=== PATIENT | male | born 1975 | race Asian ===

== ENCOUNTER 2021-04-24 10:40 | Emergency (ER) | payer OTHER, SELFPAY ==
--- NOTE | ~2021-04-24 | CT_ITS ---
EXAMINATION: CT ABDOMEN AND PELVIS WITHOUT CONTRAST CLINICAL INFORMATION: Abdominal pain COMPARISON: Previous exam September 2016 TECHNIQUE: Multidetector volumetric imaging was performed from the superior aspect of the liver through the pubic symphysis. Sagittal and coronal reformatted images were obtained on the technologist's workstation. This CT examination was performed using dose optimization techniques as appropriate, variously including the following: *Automated exposure control *Adjustment of mA and/or kV according to patient size (this includes techniques or standardized protocols for targeted exams where dose is matched to indication/reason for exam; i.e. extremities or head) *Use of iterative reconstruction technique DLP: 591 mGy-cm FINDINGS: LUNG BASES: There is a 3 mm calcified left lower lobe nodule that is stable and probably represents a calcified granuloma. The lung bases are otherwise clear. LIVER, GALLBLADDER, AND BILIARY TREE: The liver is normal in size, shape, and attenuation. No focal hepatic lesion or biliary ductal dilatation is present. The gallbladder is unremarkable with no evidence of radiopaque gallstones, gallbladder wall thickening, or obvious pericholecystic inflammatory changes. PANCREAS: Unremarkable. SPLEEN: Unremarkable. ADRENAL GLANDS: Unremarkable. KIDNEYS AND URETERS: There are small bilateral renal stones. There is moderate right hydronephrosis and ureteral dilatation from a 4 mm right distal ureteral stone. No left hydronephrosis is seen. BLADDER: Unremarkable. GASTROINTESTINAL TRACT: The small and large bowel are unremarkable. The appendix is unremarkable. There may be a small esophageal hernia. ABDOMINAL WALL: No significant hernia is appreciated. LYMPH NODES: Normal. VASCULAR: Unremarkable. PELVIC VISCERA: Unremarkable. OSSEOUS STRUCTURES: Unremarkable. CT/CT abdomen pelvis wo con IMPRESSION: Bilateral renal stones. Moderate right hydronephrosis and ureteral dilatation from a 4 mm right distal ureteral stone.
[2021-04-24 11:17] VITALS: BP 120/87; PULSE 59; RESP 18; TEMP 35.6; O2SAT 99; BMI 31.3
--- NOTE | 2021-04-24 11:26 | ED_ITS ---
HPI - Abdominal Pain General Chief Complaint: Abdominal Pain Stated Complaint: rt side abd pain Time Seen by Provider: 04/24/21 11:13 Source: patient Mode of arrival: ambulatory Limitations: no limitations History of Present Illness HPI narrative: 45 years old male with past medical history of kidney stones is here today for complaining of abdominal discomfort. Patient reports that for the last couple days he has been urinating red and brown urine, no burning sensation no pain when urinating. Started with right upper quadrant pain mild, however this morning pain started to be intensified, patient was nauseous and felt like vomiting. Patient denies eating anything different. Reports that he had a kidney stone couple years ago on the left. The pain is different this time than last time. Food or drink does not make the pain worse or better. Patient denies any fever or chills. Patient reports that the pain is sharp started in right upper umbilical area to right upper quadrant. Does not radiate to flank area or back. MD elicited complaint: abdominal pain Pertinent past history: kidney stones (In 2019) Onset (ago): hour(s) Pain Consistency: constant Location: RUQ Severity: moderate Pain scale (0-10): 7 Quality: sharp Radiation: RUQ Migration to: periumbilical Exacerbating factors: nothing Relieving factors: nothing Associated symptoms: hematuria Related Data Previous Rx's Medication Instructions Recorded ibuprofen 600 mg tablet 600 mg PO Q8H PRN #20 tab 04/24/21 ondansetron 4 mg disintegrating 4 mg PO Q8H PRN #7 tab 04/24/21 tablet oxycodone 5 mg tablet 5 mg PO Q8H PRN #7 tab 04/24/21 prednisone 20 mg tablet 20 mg PO DAILY 5 Days #5 tab 04/24/21 tamsulosin 0.4 mg capsule (Flomax) 0.4 mg PO BEDTIME #14 cap 04/24/21 Allergies Allergy/AdvReac Type Severity Reaction Status Date / Time No Known Allergies Allergy Verified 04/24/21 11:21 Review of Systems Review of Systems Constitutional : No Weight loss, No Fever, No Chills, No Night Sweats, No Fatigue, No Malaise ENT/Mouth : No Hearing loss, No Ear Pain, No Nasal Congestion, No Sinus Pain, No Hoarseness, No sore throat, No Rhinorrhea, No Swallowing Difficulty Eyes: No Eye Pain, No Swelling, No Redness, No Foreign Body, No Discharge, No Vision Changes Cardiovascular : No Chest Pain, No SOB, No Dyspnea on Exertion, No Orthopnea, No Edema, No Palpitations Respiratory : No Cough, No Sputum, No Wheezing, No Smoke Exposure, No Dyspnea Gastrointestinal :Nausea, No vomiting, No Diarrhea, No Constipation, abdominal Pain, No Hematochezia, No Melena Genitourinary : no irregular bleeding, No Dysuria, No Urinary Frequency, Hematuria, No Urinary Incontinence, No Urgency, No Flank Pain, No Urinary Flow Changes, No Hesitancy Musculoskeletal : No joint pain, No Myalgias, No Joint Swelling Skin : No Skin Lesions, No rash Neuro : No Weakness, No Numbness, No Paresthesias, No Loss of Consciousness, No Dizziness, No Headache Psych : No Anxiety/Panic, No Depression, No SI/HI/AH/VH, No Social Issues, Heme/Lymph: No Bruising, No Bleeding,No Lymphadenopathy Endocrine : No Polyuria, No Polydipsia, No Temperature Intolerance Yes all other systems are reviewed and are negative Physical Exam Vital Signs: Vital Signs: Last Vital Signs Temp 96.0 F L 04/24/21 11:17 Pulse 84 04/24/21 13:14 Resp 16 04/24/21 13:14 BP 113/64 04/24/21 13:14 Pulse Ox 99 04/24/21 13:14 Body Mass Index 31.3 Const: General: healthy appearing, no acute distress and well developed Nutritional Appearance: well nourished Orientation/consciousness: patient oriented x3 HENMT: Head: Yes normal to inspection Ears: hearing grossly normal bilaterally General nose exam: Normal external nose present Face and sinus: Yes normal facial exam Mouth: Normal oral and palatal mucosa present Throat: Yes posterior oropharynx normal Eyes: General: appearance normal, both eyes and all related structures Neck: Neck: Yes normal visual inspection, Yes full ROM and Yes trachea midline Thyroid: Thyroid normal Chest: Chest palpation & inspection: normal inspection of the chest Resp: Auscultation: clear to auscultation bilaterally Cardio: Rate: regular rate Rhythm: regular rhythm GI: Inspection: Yes normal to inspection and No distended Palpation (GI): Soft to palpation, Tenderness to palpation present (GI) (Right upper quadrant and umbilical area), no guarding and No hepatosplenomegaly present Percuss ion: Yes normal to percussion Auscultation: normal bowel sounds : General: Yes bladder normal to inspection and Yes CVA tenderness on the right Back/Spine/Pelvis: Back: CVA tenderness Skin: General skin exam: elasticity normal, turgor normal and dry skin Neuro: General: patient oriented x3 Course Course Course Narrative: 45 years old male with past medical history of kidney stone in 2019 is here today for right upper quadrant pain. Patient reports that he is feeling nauseous, however the food does not make the pain worse or better. Patient does have right-sided CVA tenderness. Reports that his urine is red, no urinary urgency or hesitancy. Will order fluids, Zofran and Toradol. We will do CMP and add lipase, CBC, urinalysis CT scan without contrast. Will check for kidney stones Reevaluation(s) Reevaluation #1: Patient has mild leukocytosis with mild shift neutrophils 87.7 %. 4 mm kidney stone with Moderate right hydronephrosis and ureteral dilatation from a 4 mm right distal ureteral stone. Spoke to Dr. Diaz. If patient is able to tolerate p.o. fluids will send him home on pain management, prednisone and Flomax. He will follow-up with him in the office. Patient reports that the pain is getting better after total. Urinalysis pending. Ceftriaxone 1 g given Reevaluation #2: Patient reports that he is feeling better I will give her oxycodone before I will discharge him home. He will follow-up with Urology in 1 week. We will send him home on prednisone and Flomax, and Zofran He is ag reeable to plan of care and verbalizes understanding of instructions. He was given the opportunity to ask questions all questions answered. MDM - Abdominal Pain Lab Data Result diagrams: 04/24/21 12:17 04/24/21 12:17 Labs: Lab Results 04/24/21 04/24/21 04/24/21 Range/Units 12:17 12:17 13:14 WBC 13.6 H (4.8-10.8) X10*3/uL RBC 4.91 (4.60-5.80) X10*6/uL Hgb 15.9 (14.0-18.0) g/dl Hct 46.5 (42-52) % MCV 94.7 (80-98) fL MCH 32.4 (27.0-33.0) pg MCHC 34.2 (31.0-36.0) g/dl RDW 13.0 (11.0-16.0) % Plt Count 273 (160-400) X10*3/uL MPV 8.5 L (9.4-12.4) fL Immature Gran % (Auto) 0.3 (0.0-0.4) % Neut % (Auto) 87.7 H (45-73) % Lymph % (Auto) 8.2 L (20-40) % [place] % (Auto) 3.4 (2-11) % Eos % (Auto) 0.2 (0-4) % Baso % (Auto) 0.2 (0-2) % Lymph # (Auto) 1.1 L (1.2-4.9) X10*3/uL [place] # (Auto) 0.5 (0.1-1.2) X10*3/uL Eos # (Auto) 0.0 (0.0-0.4) X10*3/uL Baso # (Auto) 0.0 (0.0-0.2) X10*3/uL Abs Immat Gran (auto) 0.04 H (0.00-0.03) X10*3/uL Absolute Neuts (auto) 11.9 H (2.0-8.3) X10*3/uL Absolute Nucleated RBC 0.000 (0.0-0.012) X10*3/uL Nucleated RBC % (auto) 0.0 (0.0-0.2) /100WBC Sodium 139 (135-145) mmol/L Potassium 5.0 (3.3-5.1) mmol/L Chloride 107 (96-108) mmol/L Carbon Dioxide 24 (22-29) mmol/L Anion Gap 13 (12-20) BUN 13 (9-16) mg/dL Creatinine 0.97 (0.5-1.4) mg/dL Estim Creat Clear Calc 102.2 Estimated GFR > 60 Random Glucose 107 (60-115) mg/dL Calcium 9.7 (8.4-10.2) mg/dL Total Bilirubin 0.4 (0.0-1.0) mg/dL AST 19 (5-37) U/L ALT 23 (0-40) U/L Alkaline Phosphatase 50 (39-117) U/L Total Protein 7.3 (6.5-8.0) g/dL Albumin 4.4 (3.5-5.0) g/dL Lipase 18 (8-78) U/L Urine Color BROWN Urine Appearance CLOUDY Urine pH 5.5 (5.0-8.0) Ur Specific [place] >= 1.030 H (1.005-1.025) Urine Protein 1+ H (NEG-TRACE) MG/DL Urine Glucose (UA) NEG (NEG) MG/DL Urine Ketones NEG (NEG) MG/DL Urine Blood 3+ H (NEG) Urine Nitrite NEG (NEG) Ur Leukocyte Esterase NEG (NEG) Urine RBC 50-75 H (0) /HPF Urine WBC 0 (0-4) /HPF Ur Squamous Epith Cells NONE /LPF Amorphous Sediment 1+ /LPF Urine Bacteria NONE /LPF Urine Mucus TRACE /LPF Imaging Data CT scan - abdomen: Radiologist's impression: FINDINGS: LUNG BASES: There is a 3 mm calcified left lower lobe nodule that is stable and probably represents a calcified granuloma. The lung bases are otherwise clear.? LIVER, GALLBLADDER, AND BILIARY TREE: The liver is normal in size, shape, and attenuation. No focal hepatic lesion or biliary ductal dilatation is present. The gallbladder is unremarkable with no evidence of radiopaque gallstones, gallbladder wall thickening, or obvious pericholecystic inflammatory changes.? PANCREAS: Unremarkable.? SPLEEN: Unremarkable.? ADRENAL GLANDS: Unremarkable.? KIDNEYS AND URETERS: There are small bilateral renal stones. There is moderate right hydronephrosis and ureteral dilatation from a 4 mm right distal ureteral stone. No left hydronephrosis is seen. BLADDER: Unremarkable.? GASTROINTESTINAL TRACT: The small and large bowel are unremarkable. The appendix is unremarkable. There may be a small esophageal hernia. ABDOMINAL WALL: No significant hernia is appreciated.? LYMPH NODES: Normal. VASCULAR: Unremarkable. PELVIC VISCERA: Unremarkable.? OSSEOUS STRUCTURES: Unremarkable.? Discharge Plan Discharge Clinical Impression: Calculus of kidney, Hydronephrosis Patient Disposition: Home, Self-Care Instructions: Kidney Stones (ED), Flank Pain (ED) Additional Instructions: You were seen here today for right abdominal pain. Your CT scan shows that you have 4 mm stone. There is a mild inflammation of your right he me. You were given antibiotics. Your kidney functions were normal. Your liver functions were normal. Your giving fluids, nausea medicine and medication to help with pain. We gave you medication that will help you passed the stone. He will be sent home on steroid medication and medication that will help you past the stone. Please follow up with Urology. Call them for appointment. Your case was discussed with urologist today. Please make sure year drink plenty fluids. You are being sent home with nausea medicine as well as the pain medication. Make sure you do not drive or operate heavy machinery when taking oxycodone Prescriptions: New tamsulosin [Flomax] 0.4 mg capsule 0.4 mg PO BEDTIME Qty: 14 RF: 0 prednisone 20 mg tablet 20 mg PO DAILY 5 Days Qty: 5 RF: 0 oxycodone 5 mg tablet 5 mg PO Q8H PRN (Reason: pain) Qty: 7 RF: 0 ibuprofen 600 mg tablet 600 mg PO Q8H PRN (Reason: pain) Qty: 20 RF: 0 ondansetron 4 mg tablet,disintegrating 4 mg PO Q8H PRN (Reason: nausea and vomiting) Qty: 7 RF: 0 Referrals: Ubaldo Diaz MD [Physician] - 2 days Interventions: ED Discharge Assessment Last Done: 04/24/21 15:24 Discharge Date/Time: 04/24/21 15:25 [facility] Past Medical History Medical History (Updated 04/25/21 @ 00:02 by Eugene Escamilla) No known health problems Social History Social History Smoked in Last 30 Days: No Use of substances other than those prescribed or required for medical reasons: No Advance Directives: No Advance Directives Information Provided: No
[2021-04-24] MEDS: Ondansetron ODT 4 MG TAB.RAPDIS SUBLINGUAL (12:26)
[2021-04-24] MEDS: Ketorolac Tromethamine 15 MG/ML VIAL 30 MG IVPUSH (12:26)
[2021-04-24] MEDS: 0.9 % Sodium Chloride 1,000 ML 999 ML IV (12:27)
[2021-04-24 12:30] LABS: MANUAL DIFF FLAG NO
[2021-04-24 12:32] LABS: Basophils Percent Auto 0.2 % (0-2); Eosinophils Percent Auto 0.2 % (0-4); Hematocrit 46.5 % (42-52); Hemoglobin 15.9 g/dl (14.0-18.0); Imm Gran Abs Auto 0.04 X10*3/uL (0.00-0.03); Imm Gran Pct Auto 0.3 % (0.0-0.4); Lymphocytes Absolute Auto 1.1 X10*3/uL (1.2-4.9); Lymphocytes Percent Auto 8.2 % (20-40); Mean Corpuscular HGB Conc 34.2 g/dl (31.0-36.0); Mean Corpuscular Hemoglobin 32.4 pg (27.0-33.0); Mean Corpuscular Volume 94.7 fL (80-98); Mean Platelet Volume 8.5 fL (9.4-12.4); Monocytes Absolute Auto 0.5 X10*3/uL (0.1-1.2); Monocytes Percent Auto 3.4 % (2-11); Neutrophils Absolute Auto 11.9 X10*3/uL (2.0-8.3); Neutrophils Percent Auto 87.7 % (45-73); Platelet Count 273 X10*3/uL (160-400); Red Blood Count 4.91 X10*6/uL (4.60-5.80); White Blood Count 13.6 X10*3/uL (4.8-10.8)
[2021-04-24 12:56] LABS: Alanine Aminotransferase 23 U/L (0-40); Albumin Level 4.4 g/dL (3.5-5.0); Alkaline Phosphatase 50 U/L (39-117); Anion Gap 13 (12-20); Aspartate Amino Transferase 19 U/L (5-37); Bilirubin Total 0.4 mg/dL (0.0-1.0); Blood Urea Nitrogen 13 mg/dL (9-16); Calcium 9.7 mg/dL (8.4-10.2); Carbon Dioxide 24 mmol/L (22-29); Chloride 107 mmol/L (96-108); Creatinine Clr Calc Pharmacy 102.2; Estimated Glomerular Filt Rate > 60; Glucose Random 107 mg/dL (60-115); Lipase 18 U/L (8-78); Sodium 139 mmol/L (135-145); Total Protein 7.3 g/dL (6.5-8.0)
[2021-04-24] MEDS: cefTRIAXone sodium 1 GM in 0.9 % Sodium Chloride 50 ML IV (13:09)
[2021-04-24] MEDS: Tamsulosin HCL 0.4 MG CAPSULE PO (13:09)
[2021-04-24 13:14] VITALS: BP 113/64; PULSE 84; RESP 16; O2SAT 99
--- NOTE | 2021-04-24 13:16 | PC.NURSE ---
Medicted as charted. States no pain s/p medication interventions given prior.
[2021-04-24 13:36] LABS: Glucose Urine UA NEG (NEG); Leukocyte Esterase Urine NEG (NEG); Nitrite Urine NEG (NEG); PH 5.5 (5.0-8.0); Specific Gravity - Urine >= 1.030 (1.005-1.025); UACC Culture Trigger NO; Urine Blood 3+ (NEG); Urine Ketones NEG (NEG); Urine Protein 1+ MG/DL (NEG-TRACE)
[2021-04-24 13:39] LABS: Appearance Urine CLOUDY; Color Urine BROWN
[2021-04-24 13:52] LABS: Amorphous Sediment Urine 1+ /LPF; Mucus Urine TRACE /LPF; RBC Urine 50-75 /HPF (0); WBC Urine 0 /HPF (0-4)
[2021-04-24] MEDS: predniSONE 20 MG TABLET PO (13:56)
[2021-04-24] MEDS: oxyCODONE HCl Immed Release 5 MG TABLET PO (14:44)
== END 2021-04-24 15:25 | disposition home or self-care (01) ==
PROVIDERS: Nurse Practitioner Family; Emergency Provider Emergency Medicine
DX: N20.0 Calculus of kidney (principal); Z79.899 Other long term (current) drug therapy
CPT/HCPCS: 36415; 74176; 80053; 81001; 83690; 85025; 96361; 96365; 96375; 99284; 99285; J0696; J1885

== ENCOUNTER 2024-01-14 10:03 | Outpatient (AMB) | payer SELFPAY ==
--- NOTE | 2024-01-14 10:45 | MHC.OFFWIV ---
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 They will be visiting a confucianism in the [facility] in February, and although they are not hiking (they are taking helicopter), the trip organizers require verification that participants are in good health. Patient denies any medical or surgical history. He denies any complaints at this time and states that he does not take any medications. She is regularly active and feels prepared for pentecostalism trip. They are working on getting established with PCP. [facility] Medical History No known health problems Social History Patient Tobacco Use Status: Never used Tobacco Review of Systems Const All systems reviewed & are unremarkable except as noted in HPI and below Physical Exam Vital Signs: Last Vital Signs Temp 97.9 F 01/14/24 10:55 Pulse 82 01/14/24 10:55 BP 128/80 01/14/24 10:55 Pulse Ox 98 01/14/24 10:55 BMI result Body Mass Index 28.7 Const General: cooperative, healthy appearing, comfortable and no acute distress Nutritional Appearance: average body habitus Orientation/consciousness: patient oriented x3 Limitations: no limitations HEENT Head: Yes normal to inspection Ears: hearing grossly normal bilaterally General nose exam: Normal external nose present Throat: Yes posterior oropharynx normal Eyes General: appearance normal, both eyes and all related structures Neck Neck: Yes no lymphadenopathy Resp Effort & Inspection: normal respiratory effort Auscultation: clear to auscultation bilaterally Cardio Rate: regular rate Rhythm: regular rhythm Heart sounds: S1 normal heart sound present and S2 normal heart sound present Skin General skin exam: no rashes or lesions noted Neuro General: patient oriented x3, gait normal and no focal motor deficits Extrem General: Yes capillary refill normal and Yes no clubbing, cyanosis or edema Psych Appearance: grossly normal Mental Status: mental status grossly normal Speech and movement: Normal speech and movement present Assessment & Plan Assessment & Plan (1) Physical exam, routine: Code(s): Z00.00 - Encounter for general adult medical examination without abnormal findings Plan: History and physical performed today for medical clearance for patient to travel to [facility]. At this time and based on findings today, nothing was identified in med/surg history or exam today that would restrict patient from travel. Provider paperwork completed and all questions were answered. Patient encouraged to get established with PCP for future needs. He agrees to plan. Medications: Discontinued prednisone Discontinued Reason: Patient Completed Course 20 mg PO DAILY 5 days 5 tabs 0RF ibuprofen Discontinued Reason: Patient Completed Course 600 mg PO Q8H PRN 20 tabs 0RF pain oxycodone Discontinued Reason: Patient Completed Course 5 mg PO Q8H PRN 7 tabs 0RF pain tamsulosin (Flomax) Discontinued Reason: Patient Completed Course 0.4 mg PO BEDTIME 14 caps 0RF ondansetron Discontinued Reason: Patient Completed Course 4 mg PO Q8H PRN 7 tabs 0RF nausea and vomiting Coding Level of Care Code Sports/Work/School Physical Diagnoses Physical exam, routine Z00.00
[2024-01-14 10:55] VITALS: BP 128/80; PULSE 82; TEMP 36.6; O2SAT 98; BMI 28.7
== END 2024-01-14 11:34 | disposition home or self-care (01) ==
PROVIDERS: Visit Provider Nurse Practitioner Family
DX: Z71.84 Encounter for health counseling related to travel (principal)
CPT/HCPCS: 99080